=== PATIENT | female | born 1970 | race African-American/Black ===

== ENCOUNTER 2016-10-24 00:38 | Emergency (ER) | payer SELFPAY ==
[~2016-10-24] VITALS: Ht 165.1 cm; Wt 70.5 kg
[2016-10-24 00:40] VITALS: BP 137/88; PULSE 89; RESP 18; TEMP 98.4; O2SAT 100
[2016-10-24] MEDS ORDERED: DICL75TA PO (02:27)
[2016-10-24] MEDS ORDERED: ACETAMINOPHEN/HYDROcodone 325 MG/5 MG TAB PO ONE (02:30)
[2016-10-24] MEDS ORDERED: IBUPROFEN 800 MG TAB PO ONE (02:30)
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
== END 2016-10-24 03:35 | disposition home or self-care (01) ==
LOC: NEPB 00:38
DX: S46.911A Strain of unspecified muscle, fascia and tendon at shoulder and upper arm level, right arm, initial encounter (principal); S56.911A Strain of unspecified muscles, fascia and tendons at forearm level, right arm, initial encounter; S50.11XA Contusion of right forearm, initial encounter; W50.2XXA Accidental twist by another person, initial encounter; Y93.F9 Activity, other caregiving; Y99.0 Civilian activity done for income or pay
CPT/HCPCS: 99283